=== PATIENT | female | born 1950 | race Caucasian/White ===

== ENCOUNTER 2017-04-27 07:11 | Emergency (ER) | payer MEDICARE, OTHER ==
--- NOTE | ~2017-04-27 | CR243 ---
[facility] A Service of [facility] & [facility] RADIOLOGY TEXT RESULTS PATIENT: PHIL MEEK LOCATION: CFTX : 52 UNIT #: [id number] AGE: [address]: Jenny Pineda APRN SEX: F ORDER DR: [id number] [facility] [address] [place], [place] [address] [id number] E MR#: [id number] Acc #: [id number] NAME: PHIL MEEK : 1950 SEX: F STUDY DATE/TIME: 04/27/2017 8:17 UNIT: [facility] ROOM: STUDY DESCRIPTION: CR Thoracic Spine 3 Views Attending Physician: Jenny Pineda A.P.R.N. Ordering Physician: Ed Derian May M.D. Primary Care Physician: Generic Doctor Not In System MEDICAL IMAGING REPORT This report is preliminary unless electronic signature is present EXAM Thoracic spine series 04/27/17. HISTORY Fall, back, left rib pain. FINDINGS AP, lateral and swimmer's views of thoracic spine presented. Diminished bony mineralization. Thoracic scoliosis mildly convexed to left upper thoracic spine to right mid thoracic spine to left lower thoracic spine. Vertebral body heights and intervertebral disc space heights within normal limits with mild degenerative narrowing at the T10-T11 intervertebral disc space. There is no evidence of traumatic spinal fracture or malalignment. The visualized central ribs appear intact. Central lung zones clear. Cervical spine seen on swimmer's view shows no acute abnormality. There are mild degenerative changes. Dictated by... Bernabe Chun M.D. THIS IS AN ELECTRONICALLY VERIFIED REPORT Bernabe Chun M.D. at 04/27/2017 5:16 PM RAS/dwayne TD: 04/27/2017 11:38 JOB #: [id number] MEDICAL IMAGING REPORT Page 1 of 1 COPY
--- NOTE | ~2017-04-27 | CR181 ---
[facility] A Service of [facility] & [facility] RADIOLOGY TEXT RESULTS PATIENT: PHIL MEEK LOCATION: CFTX : 52 UNIT #: [id number] AGE: [address]: Jenny Pineda APRN SEX: F ORDER DR: [id number] [facility] [address] [place], [place] [address] [id number] E MR#: [id number] Acc #: [id number] NAME: PHIL MEEK : 1950 SEX: F STUDY DATE/TIME: 04/27/2017 8:16 UNIT: [facility] ROOM: STUDY DESCRIPTION: CR Lumbar Spine 2 or 3 Views Attending Physician: Jenny Pineda A.P.R.N. Ordering Physician: Ed Derian May M.D. Primary Care Physician: Generic Doctor Not In System MEDICAL IMAGING REPORT This report is preliminary unless electronic signature is present EXAM Lumbar spine series. HISTORY Fall. Back left rib pain. Fall 3-4 days ago. Lower lateral ribs. Lumbar spine. FINDINGS AP and 2 lateral views of the lumbar spine are presented. Five lumbar-type vertebral segments. Mild levoscoliosis at the thoracolumbar junction. No indication of traumatic fracture or malalignment. Lumbar vertebral body heights and intervertebral disc space heights are preserved. Mild to moderate facet degenerative changes most pronounced L3-L4, L4-L5, L5-S1. Visualized lower thoracic spine and visualized bony pelvis unremarkable. Bowel gas pattern normal. Lung bases grossly clear. Atherosclerotic arterial calcifications. Clothing artifacts overlying the upper lumbar spine. Dictated by... Bernabe Chun M.D. THIS IS AN ELECTRONICALLY VERIFIED REPORT Bernabe Chun M.D. at 04/27/2017 5:16 PM RAS/xander TD: 04/27/2017 12:05 JOB #: [id number] MEDICAL IMAGING REPORT Page 1 of 1 COPY
--- NOTE | ~2017-04-27 | CR210 ---
[facility] A Service of [facility] & [facility] RADIOLOGY TEXT RESULTS PATIENT: PHIL MEEK LOCATION: CFTX : 52 UNIT #: [id number] AGE: [address]: Jenny Pineda APRN SEX: F ORDER DR: [id number] [facility] [address] [place], [place] [address] [id number] E MR#: [id number] Acc #: [id number] NAME: PHIL MEEK : 1950 SEX: F STUDY DATE/TIME: 04/27/2017 8:18 UNIT: [facility] ROOM: STUDY DESCRIPTION: CR Ribs Uni 2 View W PA Ch Lt Attending Physician: Jenny Pineda A.P.R.N. Ordering Physician: [facility] Primary Care Physician: Generic Doctor Not In System MEDICAL IMAGING REPORT This report is preliminary unless electronic signature is present EXAM Left rib series 04/27/2017 HISTORY Fall back, left rib pain 3-4 days ago. Patient fell. Lower lateral rib left pain. FINDINGS AP radiograph of the chest is presented with AP and oblique radiographs of the left ribs. Study degraded by clothing artifact overlying relevant anatomy. No displaced rib fracture is seen. Thoracic spine scoliosis. See thoracic spine series for further assessment. Degenerative changes in the lumbar spine. Heart [id number] limits of normal in size. Tortuous descending thoracic aorta. The lungs are well inflated without evidence of acute pulmonary disease, pleural effusion or pneumothorax. No suspicious nodule. Visualized bowel gas pattern normal. Dictated by... Bernabe Chun M.D. THIS IS AN ELECTRONICALLY VERIFIED REPORT Bernabe Chun M.D. at 04/27/2017 5:16 PM RAS/tiera TD: 04/27/2017 11:41 JOB #: [id number] MEDICAL IMAGING REPORT Page 1 of 1 COPY
== END 2017-04-27 09:35 | disposition home or self-care (01) ==
LOC: CFTX 07:11 → CED 07:11 → CFTX 07:55
DX: S23.3XXA Sprain of ligaments of thoracic spine, initial encounter (principal); S33.5XXA Sprain of ligaments of lumbar spine, initial encounter; S20.212A Contusion of left front wall of thorax, initial encounter; F17.200 Nicotine dependence, unspecified, uncomplicated; Z86.19 Personal history of other infectious and parasitic diseases; W01.0XXA Fall on same level from slipping, tripping and stumbling without subsequent striking against object, initial encounter; Y92.009 Unspecified place in unspecified non-institutional (private) residence as the place of occurrence of the external cause
CPT/HCPCS: 71101; 72072; 72100; 99283